=== PATIENT | male | born 1950 ===

== ENCOUNTER 2019-08-22 13:39 | Day surgery (SDC) | payer MEDICARE ==
[2019-08-22] MEDS ORDERED: PROPOFOL 10 MG/ML VIAL IV ONE (13:40)
[2019-08-22] MEDS ORDERED: MIDAZOLAM HCL 2MG/2ML VIAL IV ONE (13:40)
[2019-08-22] MEDS ORDERED: LIDOCAINE 2% MDV (20MG/ML) 20ML VIAL IV ONE (13:40)
--- NOTE | 2019-08-23 08:41 | Operative Note ---
OPERATION: 1. ESOPHAGOGASTRODUODENOSCOPY with biopsy. 2. COLONOSCOPY with cold snare polypectomy. PREOPERATIVE DIAGNOSIS: Anemia. POSTOPERATIVE DIAGNOSES: 1. Ulcerative esophagitis. 2. Erosive antral gastritis. 3. Mild duodenitis. 4. Ascending colon polyps x4. 5. Rectal polyp x1. SPECIMENS: GE junction, gastric, ascending colon, and rectal. ESTIMATED BLOOD LOSS: Minimal. COMPLICATIONS: None apparent. PREPARATION QUALITY: Good to excellent. PROCEDURE: After informed consent was obtained from the patient, he was placed in the left lateral decubitus position in the endoscopy suite, sedated and monitored by the department of anesthesia. A well-lubricated [id number] gastroscope was placed in the posterior oropharynx under direct visualization and passed to the proximal esophagus. The endoscope was advanced through the proximal, mid, and distal esophagus. The GE junction demonstrated ulcerative changes and irregularity as well as erythema. The gastric body, antrum, and pylorus were inspected revealing a few scattered antral erosions. There was scattered linear erythema in the duodenal bulb and sweep. J-turn views of the proximal stomach were unrevealing. The endoscope was straightened and antral biopsies were obtained, GE junction biopsies were obtained. The endoscope was removed from the patient with no new findings noted. Digital rectal exam was unremarkable. A well-lubricated [id number] colonoscope was inserted into the rectum and advanced to the cecum. Preparation quality was good to excellent. The cecum and cecal bulb were unremarkable. In the ascending colon there were 4 polyps ranging in size from 4-12 mm all removed with a cold snare with minimal bleeding noted. The polyps were retrieved without incident. The remainder of the ascending colon, transverse colon, descending colon, and sigmoid colon were unremarkable. There was a 4 mm sessile rectal polyp removed with a cold snare. J-turn views of the anorectum were unremarkable. The endoscope was straightened, the rectal ampulla deflated, and the endoscope was removed. RECOMMENDATIONS: I would suggest the patient resume his medications and diet. We will start him on pantoprazole 40 mg daily and repeat his upper endoscopy in 8 weeks. He will require repeat colonoscopy in 1-3 years pending tissue histology. As always, thank you for allowing me to participate in the healthcare of your patients. JUVENTINO
== END 2019-08-22 14:53 | disposition home or self-care (01) ==
LOC: HOP 13:39
PROVIDERS: ATTEND Internal Medicine Gastroenterology
DX: D64.9 Anemia, unspecified (principal); D12.2 Benign neoplasm of ascending colon; K62.1 Rectal polyp; K22.10 Ulcer of esophagus without bleeding; K29.60 Other gastritis without bleeding; K29.80 Duodenitis without bleeding; K21.0 Gastro-esophageal reflux disease with esophagitis; I10 Essential (primary) hypertension; E11.9 Type 2 diabetes mellitus without complications; E78.00 Pure hypercholesterolemia, unspecified; F10.21 Alcohol dependence, in remission

== ENCOUNTER 2019-10-24 07:15 | Day surgery (SDC) | payer MEDICARE ==
[2019-10-24] MEDS ORDERED: LIDOCAINE 2% MDV (20MG/ML) 20ML VIAL IV ONE (07:16)
[2019-10-24] MEDS ORDERED: PROPOFOL 10 MG/ML VIAL IV ONE (07:16)
--- NOTE | 2019-10-25 09:50 | Operative Note ---
OPERATION: ESOPHAGOGASTRODUODENOSCOPY with biopsy. PREOPERATIVE DIAGNOSIS: Esophageal ulcer followup. POSTOPERATIVE DIAGNOSES: 1. Irregular Z line. 2. Small hiatal hernia. 3. Antral erosions. PROCEDURE: After informed consent was obtained from the patient, he was placed in the left lateral decubitus position in the endoscopy suite, sedated and monitored by the department of anesthesia. A well-lubricated [id number] gastroscope was placed in the posterior oropharynx under direct visualization and passed to the proximal esophagus. The endoscope was advanced through the proximal, mid, and distal esophagus. The GE junction was irregular. The previous ulcers had healed. There was a small hiatal hernia. The gastric body and the antrum were inspected revealing antral gastritis and scattered erosions. The pylorus, duodenal bulb, and sweep were unremarkable. J-turn views of the proximal stomach were unrevealing other than a small hiatal hernia being noted. The endoscope was straightened. Biopsies were obtained from the irregular portion of the squamocolumnar border. The endoscope was removed from the patient with no new findings noted. RECOMMENDATIONS: The patient should be on a [id number] PPI indefinitely. Further recommendations based on tissue histology. As always, thank you for allowing me to participate in the healthcare of your patients. JUVENTINO
== END 2019-10-24 09:11 | disposition home or self-care (01) ==
LOC: HOP 07:15
PROVIDERS: ATTEND Internal Medicine Gastroenterology
DX: K21.0 Gastro-esophageal reflux disease with esophagitis (principal); K44.9 Diaphragmatic hernia without obstruction or gangrene; E11.9 Type 2 diabetes mellitus without complications; I10 Essential (primary) hypertension; E78.00 Pure hypercholesterolemia, unspecified; K22.8 Other specified diseases of esophagus; K25.4 Chronic or unspecified gastric ulcer with hemorrhage